=== PATIENT | male | born 1970 | race Caucasian/White ===

== ENCOUNTER 2018-05-11 23:13 | Emergency (ER) | payer OTHER ==
[~2018-05-11] VITALS: Ht 177.8 cm; Wt 134.9 kg
[2018-05-11 23:17] VITALS: Ht 177.8 cm; Wt 134.9 kg
[2018-05-12] MEDS ORDERED: NITROGLYCERIN 2% 1 GM OINT PKT TD STA (01:55)
[2018-05-12] MEDS ORDERED: ASPIRIN 81 MG TAB PO STA (01:55)
[2018-05-12] MEDS ORDERED: NITROGLYCERIN (SL) 0.4 MG TAB SL PRN (02:00)
[2018-05-12] MEDS ORDERED: ACETAMINOPHEN 325 MG TAB PO ONE (04:30)
[2018-05-12] MEDS ORDERED: ONDANSETRON 4 MG INJ IV STA (04:54)
[2018-05-12] MEDS ORDERED: morphine 4 MG/ML VIAL IV STA (04:54)
[2018-05-12] MEDS ORDERED: ENOXAPARIN 100 MG/ML SYG SC ONE (06:00)
--- NOTE | 2018-05-12 06:02 | ERD ---
ER Documentation Chief Complaint Chief Complaint precordial pain radiating to upper back today HPI Patient is a 48-year-old male with hypertension and diabetes and smoking who presents with chest pain. He feels weakness as well. There was concern for possible PA but he says that he thought it might just be the cold that he had at home. He said that his symptoms started yesterday at 1 PM. It comes and goes. Today it worsened and lasted longer which is why he came to the emergency department. Upon review of old medical records this is the patient's first visit to the emergency department. ROS All systems reviewed and are negative except as per history of present illness. Allergies Allergies: Coded Allergies: No Known Allergy (Unverified , 05/11/18) PMhx/Soc History of Surgery: Yes (Umbilical hernia) Anesthesia Reaction: No Hx Neurological Disorder: No Hx Respiratory Disorders: No Hx Cardiac Disorders: Yes (HTN, Tachycardia) Hx Psychiatric Problems: No Hx Miscellaneous Medical Probl: Yes (DM) Hx Alcohol Use: Yes (3x/yr) Hx Substance Use: No Hx Tobacco Use: Yes Smoking Status: Current every day smoker FmHx Family History: No coronary disease Physical Exam Vitals Vital Signs Date Temp Pulse Resp B/P (MAP) Pulse Ox O2 O2 Flow FiO2 Time Delivery Rate 05/12/18 97.0 102 20 137/88 96 Room Air 03:19 (104) 05/12/18 97.0 105 18 155/104 98 Room Air 02:53 (121) 05/12/18 99 170/96 00:30 (120) 05/11/18 97.0 100 18 189/104 98 23:17 (132) Physical Exam Const: No acute distress Head: Atraumatic Eyes: Normal Conjunctiva ENT: Normal External Ears, Nose and Mouth. Neck: Full range of motion. No meningismus. Resp: Clear to auscultation bilaterally Cardio: Regular rate and rhythm, no murmurs Abd: Soft, non tender, non distended. Normal bowel sounds Skin: No petechiae or rashes Back: No midline or flank tenderness Ext: No cyanosis, or edema Neur: Awake and alert Psych: Normal Mood and Affect Result Diagram: 05/12/1821905/12/18219 Results 24 hrs Laboratory Tests Test 05/12/18 02:20 White Blood Count 14.8 10^3/ul Red Blood Count 5.60 10^6/ul Hemoglobin 16.6 g/dl Hematocrit 49.4 % Mean Corpuscular Volume 88.2 fl Mean Corpuscular Hemoglobin 29.6 pg Mean Corpuscular Hemoglobin Concent 33.6 g/dl Red Cell Distribution Width 12.0 % Platelet Count 327 10^3/UL Mean Platelet Volume 10.0 fl Immature Granulocytes % 0.500 % Neutrophils % 74.7 % Lymphocytes % 16.6 % Monocytes % 6.6 % Eosinophils % 1.1 % Basophils % 0.5 % Nucleated Red Blood Cells % 0.0 /100WBC Immature Granulocytes # 0.080 10^3/ul Neutrophils # 11.1 10^3/ul Lymphocytes # 2.5 10^3/ul Monocytes # 1.0 10^3/ul Eosinophils # 0.2 10^3/ul Basophils # 0.1 10^3/ul Nucleated Red Blood Cells # 0.0 10^3/ul Sodium Level 139 mmol/L Potassium Level 4.5 mmol/L Chloride Level 96 mmol/L Carbon Dioxide Level 31 mmol/L Anion Gap 12 Blood Urea Nitrogen 14 mg/dl Creatinine 0.83 mg/dl Est Glomerular Filtrat Rate mL/min > 60 mL/min Glucose Level 418 mg/dl Calcium Level 10.1 mg/dl Creatine Kinase 175 IU/L Creatine Kinase Index 3.1 Creatinine Kinase MB (Mass) 5.36 ng/ml Troponin I 0.293 ng/ml Current Medications Medications Dose Sig/Margaret Start Time Status Last (Trade) Ordered Route PRN Stop Time Admin Dose Reason Admin Aspirin 162 mg ONCE STAT 05/12/18 DC 05/12/18 (Aspirin) PO 01:55 05/12/18 02:30 01:57 1 inch ONCE STAT 05/12/18 DC 05/12/18 Nitroglycerin TD 01:55 05/12/18 02:31 01:57 (Nitroglyceri n 2% Oint) 1 tab Q5M UP TO 3 05/12/18 05/12/18 Nitroglycerin DOSES PRN 02:00 02:30 SL CHEST (Nitroglyceri PAIN n (Sl Tab) 0.4 Mg) 650 mg ONCE ONCE 05/12/18 DC 05/12/18 Acetaminophen PO 04:30 05/12/18 04:09 (Tylenol 04:31 Tab) Morphine 4 mg ONCE STAT 05/12/18 DC 05/12/18 Sulfate IV 04:54 05/12/18 05:14 (morphine) 04:55 Ondansetron 4 mg ONCE STAT 05/12/18 DC 05/12/18 HCl (Zofran IV 04:54 05/12/18 05:14 Inj) 04:55 Enoxaparin 100 mg ONCE ONCE 05/12/18 Sodium SC 06:00 05/12/18 (Lovenox) 06:01 Procedures/MDM EKG 1 read by me: Rate/Rhythm: Regular rate and rhythm at a normal rate Intervals: Normal Impression: No evidence of ischemia or arrhythmia EKG 2 read by me: Rate/Rhythm: Regular rate and rhythm at a normal rate Intervals: Normal Impression: No evidence of ischemia or arrhythmia Chest x-ray read by radiology. Smoking Cessation Therapy: Pt. was lectured for greater than 3 minutes on the health risks of continued smoking and the benefits of cessation. Patient is a 48-year-old male with hypertension and diabetes and smoking who presents with chest pain. Troponin came back positive and therefore I believe this is an STEMI. EKG does not show any signs of ST elevations. The patient was given aspirin, nitroglycerin, and Lovenox. The patient will need to be admitted to a telemetry bed and is unstable for transfer. We have called the [facility] Hospital[facility] doctor for admission and are awaiting a callback at this time. The patient was signed out to Dr. Arteaga for final disposition. Departure Diagnosis: Primary Impression: NSTEMI (non-ST elevated myocardial infarction) Additional Impression: Chest pain Chest pain type: unspecified Qualified Codes: R07.9 - Chest pain, unspecified Condition: Serious NORMA HERRERA MD May 12, 2018 06:02
[2018-05-12] MEDS ORDERED: METOPROLOL 25 MG TAB PO ONE (06:30)
[2018-05-12] MEDS ORDERED: INSULIN REGULAR, HUMAN 100 UNIT/1 ML 3ML VIAL SC ONE (08:30)
[2018-05-12 09:56] VITALS: BP 138/97; PULSE 84; RESP 18
== END 2018-05-12 10:17 | disposition short-term general hospital (02) ==
LOC: E/R 23:13 → CANBEDREQ 05-12 06:53 → E/R 05-12 10:17
DX: I21.4 Non-ST elevation (NSTEMI) myocardial infarction (principal); I10 Essential (primary) hypertension; E11.9 Type 2 diabetes mellitus without complications; F17.210 Nicotine dependence, cigarettes, uncomplicated
CPT/HCPCS: 36415; 71045; 80048; 82550; 82553; 82962; 84484; 85025; 93005; 96372; 96374; 96375; J1650; J1815; J2270; J2405; Z7502; Z7610